=== PATIENT | female | born 1945 | race Caucasian/White ===

== ENCOUNTER → 2016-09-01 | Outpatient (CLI) | payer OTHER ==
[~2016-09-01] MED LIST: ASPIR 8181 MG PO; CALCIUM 600 +1 EAC1 PO; CARDIZEM CD240 MG PO; CENTRUM SILVER1 EAC4 PO; CO Q-10100 MG PO; FLOMAX0.4 MG PO; LIPITOR10 MG PO; NORCO 5-325 TA1 EACH PO; TRAMADOL 50 MG50 MG PO; VITAMIN D1000 UNI1 PO; VITAMIN E400 UNIT PO; ZOFRAN ODT4 MG PO
== END ==
LOC: MRI 11:49
DX: M48.06 Spinal stenosis, lumbar region (principal); M25.78 Osteophyte, vertebrae; M54.5 Low back pain; R20.0 Anesthesia of skin

== ENCOUNTER → 2016-09-21 | Outpatient (CLI) | payer OTHER | LOC: MRI 09-10 09:10 | DX: M16.12 Unilateral primary osteoarthritis, left hip (principal); M65.88 Other synovitis and tenosynovitis, other site ==